=== PATIENT | male | born 1980 | race Caucasian/White ===

== ENCOUNTER 2020-07-14 19:23 | Emergency (ER) | payer SELFPAY ==
[2020-07-14 19:55] VITALS: BP 147/81; PULSE 95; RESP 18; TEMP 36.9; O2SAT 95
--- NOTE | 2020-07-14 20:17 | ED.SKABFB ---
HPI - Skin/Abscess/Foreign Bdy General Chief complaint: Skin/Abscess/Foreign Body Stated complaint: poison rachell breakout Time Seen by Provider: 07/14/20 20:09 Source: patient Mode of arrival: ambulatory Limitations: no limitations History of Present Illness HPI narrative: This is a 39 year old male that presents to the ER for rash present x 3 days. Reports history of reactions to poison rachell. Reports he was doing yard work on Tuesday before it started. The rash is very itchy. He has been using over the counter creams, with little relief. Denies fever. Related Data Allergies Allergy/AdvReac Type Severity Reaction Status Date / Time No Known Allergies Allergy Unknown Unverified 10/15/13 13:25 Review of Systems Review of Systems: Narrative: CONSTITUTIONAL: Denies fever SKIN: Reports rash and itching. All systems reviewed & are unremarkable except as noted in HPI and below PMFSH Past Medical History Medical History (Updated 07/14/20 @ 20:25 by Meera Rendon PA-C) No active medical problems Social History Social History (Updated 07/14/20 @ 20:20 by Meera Rendon PA-C) Smoking status: Current every day smoker Exam Narrative: Exam Narrative: GENERAL: Well-appearing, well-nourished, and in no acute distress. HEAD: Normocephalic, atraumatic. EYES: EOMI. EXTREMITIES: Normal range of motion. No edema. SKIN: Warm, dry. Red, papular rash to the abdomen, legs, and back. Papular rash also present on the arms with areas of blistering NEURO: No focal deficits. Alert and oriented x3. PSYCH: Normal mood and affect Course Vital Signs Vital signs: Vital Signs Temperature 98.4 F 07/14/20 19:55 Pulse Rate 95 07/14/20 19:55 Respiratory Rate 18 07/14/20 19:55 Blood Pressure 147/81 H 07/14/20 19:55 Pulse Oximetry 95 07/14/20 19:55 Temperature 98.4 F 07/14/20 19:55 Pulse Rate 95 07/14/20 19:55 Respiratory Rate 18 07/14/20 19:55 Blood Pressure 147/81 H 07/14/20 19:55 Pulse Oximetry 95 07/14/20 19:55 MDM - Skin/Abscess/Foreign Bdy MDM Narrative Medical decision making narrative: Patient presents the emergency department for contact dermatitis due to poison rachell. Will be started on steroid taper and was instructed on antihistamines. He is to follow-up with primary care doctor. He was given warnings to return to the ER Critical Care Time Critical Care Time Critical Care Time: No Discharge Plan Discharge Clinical Impression: Contact dermatitis due to poison rachell Patient Disposition: Home, Self-Care Condition: Stable Instructions: Poison Rachell (ED) Additional Instructions: Return to the emergency department if you experience fever, redness and swelling of your wounds, abnormal drainage from your wounds, or any other symptoms that are concerning to you Take a Pepcid and Claritin daily. Take prednisone taper as prescribed. You were given your first dose today, start this tomorrow. Benadryl as needed for severe itching Follow-up with primary care doctor Prescriptions: New prednisone 10 mg tablet 10 mg PO DAILY Qty: 45 RF: 0 Follow-up/Referrals: Diego Jo Jr., MD [Physician] - 1 Week UNKNOWN,DOCTOR [Primary Care Provider] -
[2020-07-14] MEDS: predniSONE 20 MG TABLET 60 MG PO (21:04)
== END 2020-07-14 21:05 | disposition home or self-care (01) ==
PROVIDERS: Emergency Provider Emergency Medicine
DX: L23.7 Allergic contact dermatitis due to plants, except food (principal); F17.200 Nicotine dependence, unspecified, uncomplicated
CPT/HCPCS: 99283; J7512

== ENCOUNTER 2020-12-31 10:46 | Emergency (ER) | payer SELFPAY ==
--- NOTE | ~2020-12-31 | XR_ITS ---
EXAMINATION: XR hand RT min 3V DATE: 12/31/2020 11:35 INDICATION: Right hand edema and erythema. Open sore at the right third knuckle. TECHNIQUE: 3 views of right hand were obtained. COMPARISON: None. FINDINGS: Bone alignment is normal. No fracture. There is mild osteoarthritis of second metacarpophal angeal joint. There is soft tissue swelling dorsal to the metacarpophalangeal joints. IMPRESSION: 1. Mild osteoarthritis of second metacarpophalangeal joint. Reviewed, dictated and finalized at location A.
[2020-12-31 10:58] VITALS: BP 136/84; PULSE 98; RESP 16; TEMP 37; O2SAT 100
[2020-12-31 12:06] LABS: Basophils Absolute Auto 0.1 K/mm3 (0.0-0.1); Basophils Percent Auto 0.8 % (0.2-1.2); Eosinophils Absolute Auto 0.2 K/mm3 (0-0.3); Eosinophils Percent Auto 2.5 % (0-4.4); Hematocrit 44.6 % (42.0-52.0); Hemoglobin 14.8 g/dL (14.0-18.0); Immature Granulocyte Absolute 0.01 K/mm3 (0.00-0.031); Immature Granulocyte Percent A 0.1 % (0-0.5); Lymphocytes Percent Auto 23.7 % (18.3-44.2); Mean Corpuscular HGB Conc 33.2 g/dl (32-36); Mean Corpuscular Volume 93.5 fl (80-100); Mean Platelet Volume 9.4 fl (7.4-10.4); Neutrophils Absolute Auto 5.1 K/mm3 (1.3-6.7); Neutrophils Percent Auto 60.9 % (45.5-73.1); Platelet Count Result 295 k/mm3 (150-375); Red Blood Count 4.77 M/mm3 (4.6-6.20); Red Cell Distribution Width 14.3 % (11.5-14.5); White Blood Count 8.4 K/mm3 (4.5-10.0)
--- NOTE | 2020-12-31 12:13 | ED.WOUNDLAC ---
HPI - Wound/Laceration General Chief Complaint: Wound/Laceration <Meera Rendon PA-C - Last Filed: 12/31/20 12:53> Stated Complaint: right hand lac 3 weeks ago <Meera Rendon PA-C - Last Filed: 12/31/20 12:53> Time Seen by Provider: 12/31/20 11:14 <Meera Rnedon PA-C - Last Filed: 12/31/20 12:53> Source: patient <Meera Rendon PA-C - Last Filed: 12/31/20 12:53> Mode of arrival: ambulatory <Meera Rendon PA-C - Last Filed: 12/31/20 12:53> Limitations: no limitations <Meera Rendon PA-C - Last Filed: 12/31/20 12:53> History of Present Illness HPI narrative: This is a 40-year-old male that presents to the emergency department for right hand redness and swelling noted since yesterday. Reports he sustained a laceration to the hand a couple of weeks ago. He did not seek medical care for this. Reports since yesterday he has noted the wound has become red and swollen. Does report some serous drainage from the area. Denies fevers. <Meera Rendon PA-C - Last Filed: 12/31/20 12:53> Related Data Allergies/Adverse Reactions: Allergies Allergy/AdvReac Type Severity Reaction Status Date / Time No Known Allergies Allergy Unknown Verified 12/31/20 11:03 <Meera Rendon PA-C - Last Filed: 12/31/20 12:53> Review of Systems Review of Systems: CONSTITUTIONAL: Denies fever SKIN: Denies redness and swelling <Meera Rendon PA-C - Last Filed: 12/31/20 12:53> All systems reviewed & are unremarkable except as noted in HPI and below <Meera Rendon PA-C - Last Filed: 12/31/20 12:53> [facility] Past Medical History Medical History: Medical History (Updated 12/31/20 @ 12:52 by Meera Rendon PA-C) No active medical problems <Meera Rendon PA-C - Last Filed: 12/31/20 12:53> Social History Social History: Social History (Updated 07/14/20 @ 20:20 by Meera Rendon PA-C) Smoking status: Current every day smoker <Meera Rendon PA-C - Last Filed: 12/31/20 12:53> Exam Narrative: GENERAL: Well-appearing, well-nourished, and in no acute distress. HEAD: Normocephalic, atraumatic. EYES: EOMI. EXTREMITIES: Normal range of motion. 2 cm linear laceration into subcutaneous tissue over the dorsal surface of the right hand third MCP joint. Mild to moderate edema and erythema surrounding. No obvious fluctuance to suggest abscess SKIN: Warm, dry, no rash. NEURO: No focal deficits. Alert and oriented x3. PSYCH: Normal mood and affect <Meera Rendon PA-C - Last Filed: 12/31/20 12:53> Course Vital Signs Vital signs: Vital Signs Temperature 98.6 F 12/31/20 10:58 Pulse Rate 98 12/31/20 10:58 Respiratory Rate 16 12/31/20 10:58 Blood Pressure 136/84 12/31/20 10:58 Pulse Oximetry 100 12/31/20 10:58 Temperature 98.6 F 12/31/20 10:58 Pulse Rate 90 12/31/20 13:47 Respiratory Rate 16 12/31/20 13:47 Blood Pressure 122/84 12/31/20 13:47 Pulse Oximetry 97 12/31/20 13:47 <Meera Rendon PA-C - Last Filed: 12/31/20 12:53> MDM - Wound/Laceration MDM Narrative Medical decision making narrative: Patient presents to the emergency department for redness and swelling of the right hand. Recently had sustained a laceration to the hand and did not seek medical attention. Reports yesterday he noted that the laceration started to become red and swollen. He is afebrile and nontoxic-appearing. No obvious fluctuance to suggest abscess. CBC metabolic panel without concerning findings. Inflammatory markers are not elevated. Right hand x-ray shows mild osteoarthritis. Patient was updated on case findings. Given first dose of antibiotics IV in the ED and will be started on oral antibiotics for cellulitis. He is stable and felt appropriate for further outpatient evaluation. He was given warnings to return to the ER <Meera Rendon PA-C - Last Filed: 12/31/20 12:53> Lab Data Attestation: I reviewed the pat
[2020-12-31 12:20] LABS: Anion Gap 6 mmol/L (8-16); Blood Urea Nitrogen 13 mg/dL (9-20); CRP < 0.5 mg/dL (<1.0); Calcium 8.9 mg/dL (8.4-10.2); Carbon Dioxide 29 mmol/L (22-30); Chloride 103 mmol/L (98-107); Estimated CRCL calculation 88 ml/min; Estimated Glomerular Filt Rate > 60; Glucose 92 mg/dL (65-110); Potassium 4.1 mmol/L (3.4-5.0); Sodium 138 mmol/L (137-145)
[2020-12-31 12:33] LABS: Erythrocyte Sedimentation Rate 7 mm/hr (0-20)
[2020-12-31] MEDS: TETANUS,DIPHTHERIA,AC PERTUSSIS ADULT (0.5 ML) BOOSTRIX IM (13:18)
[2020-12-31 13:47] VITALS: BP 122/84; PULSE 90; RESP 16; O2SAT 97
== END 2020-12-31 13:48 | disposition home or self-care (01) ==
PROVIDERS: Physician Assistant; Emergency Provider General Practice
DX: L03.113 Cellulitis of right upper limb (principal); Z23 Encounter for immunization
CPT/HCPCS: 36415; 73130; 80048; 85025; 85652; 86140; 90471; 90715; 96365; 99283; J0690

== ENCOUNTER 2021-06-22 03:36 | Emergency (ER) | payer SELFPAY ==
--- NOTE | ~2021-06-22 | XR_ITS ---
EXAMINATION: XR finger 2nd RT min 2V DATE: 06/22/2021 04:21 INDICATION: Laceration and trauma to the right second finger TECHNIQUE: Dorsal palmar, lateral and 2 oblique views of the right second digit were obtained COMPARISON: None FINDINGS: Bone alignment is normal. No fracture. Joint spaces are relatively preserved. Dorsal carpal bossing w ith sesamoid bone the third carpometacarpal joint. Bone islands at the distal radius. Soft tissue swe lling with small focus of subcutaneous gas at the dorsal aspect of the second proximal interphalangea l joint consistent with given history of laceration. No radiopaque foreign bodies. IMPRESSION: 1. No acute osseous abnormality or radiopaque foreign bodies. Reviewed, dictated and finalized at location A.
[2021-06-22 03:41] VITALS: BP 160/100; PULSE 95; RESP 18; O2SAT 98
[2021-06-22 03:42] VITALS: BP 160/100; PULSE 92; RESP 16; TEMP 37.1; O2SAT 100
--- NOTE | 2021-06-22 04:07 | ED.GENADULT ---
HPI - General Adult General Chief complaint: Wound/Laceration Stated complaint: lac rt finger Time Seen by Provider: 06/22/21 03:50 History of Present Illness HPI narrative: Patient is a 40-year-old gentleman who presents the emergency department with chief complaint of finger laceration. The patient reports that he had a 2 x 4 landed on his right index finger patient reports there is a laceration on the right index finger PIP joint reports that he had a difficult time controlling the bleeding and this happened around 8 PM. The patient states that it is painful but reports he is able to move the finger without difficulty reports some slight decrease sensation on the lateral aspect of the finger but states that he still is able to feel things. The patient reports that he is up-to-date on his tetanus status Related Data Allergies Allergy/AdvReac Type Severity Reaction Status Date / Time No Known Allergies Allergy Unknown Verified 06/22/21 03:45 Review of Systems Review of Systems: A 10 system review of systems was completed on the patient and is negative except for what is stated in the HPI. Nursing and ancillary documentation was reviewed. PMFSH Past Medical History Medical History No active medical problems Social History Social History Smoking status: Current every day smoker Exam Narrative: GENERAL: Well-appearing, well-nourished, and in no acute distress. HEAD: Normocephalic, atraumatic. EYES: PERRLA and EOMI. ENT: Nares clear, no rhinorrhea or epistaxis. Mucous membranes moist. NECK: Supple. CHEST: Clear to auscultation. No respiratory distress. HEART: Regular rate and rhythm. No murmur heard. Normal peripheral pulses. ABDOMEN: Soft, nontender, nondistended, normal active bowel sounds. EXTREMITIES: Normal range of motion. No edema. There is a 2 cm laceration on the PIP joint of the right index finger SKIN: Warm, dry, no rash. NEURO: No focal deficits. Alert and oriented x3. PSYCH: Normal mood and affect. Course Vital Signs Vital signs: Vital Signs Pulse Rate 95 06/22/21 03:41 Respiratory Rate 18 06/22/21 03:41 Blood Pressure 160/100 H 06/22/21 03:41 Pulse Oximetry 98 06/22/21 03:41 Temperature 37.1 C 06/22/21 03:42 Pulse Rate 92 06/22/21 03:42 Respiratory Rate 16 06/22/21 03:42 Blood Pressure 160/100 H 06/22/21 03:42 Pulse Oximetry 100 06/22/21 03:42 Procedures Laceration Laceration 1: Date: 06/22/21 Time: 05:22 Site: hand Side (If applicable): right Size (cm): 2 Description: linear Depth: simple, single layer Local Anesthetic: lidocaine 1% Amount of anesthesia used (mL): 4 Pre-repair: wound explored and irrigated extensively ====== Skin Level ====== Skin layer closed with: nylon Size (cm): 4-0 Number of sutures: 5 Technique: simple, interrupted ====== Subcutaneous Layer ====== ====== Muscle Layer ====== ====== Tendon Layer ====== Medical Decision Making Vital Signs Vital Signs: Vital Signs Pulse Rate 95 06/22/21 03:41 Respiratory Rate 18 06/22/21 03:41 Blood Pressure 160/100 H 06/22/21 03:41 Pulse Oximetry 98 06/22/21 03:41 Temperature 37.1 C 06/22/21 03:42 Pulse Rate 92 06/22/21 03:42 Respiratory Rate 16 06/22/21 03:42 Blood Pressure 160/100 H 06/22/21 03:42 Pulse Oximetry 100 06/22/21 03:42 Imaging Data My impression: Finger x-ray shows no evidence of fracture Discharge Plan Discharge Clinical Impression: Laceration Laceration of right index finger Qualifiers: Encounter type: initial encounter Damage to nail status: without damage Foreign body presence: without foreign body Qualified Code(s): S61.210A - Laceration without foreign body of right index finger without damage t
== END 2021-06-22 05:30 | disposition home or self-care (01) ==
PROVIDERS: Emergency Provider Emergency Medicine
DX: S61.210A Laceration without foreign body of right index finger without damage to nail, initial encounter (principal); F17.200 Nicotine dependence, unspecified, uncomplicated; W20.8XXA Other cause of strike by thrown, projected or falling object, initial encounter
CPT/HCPCS: 12001; 73140; 99283

== ENCOUNTER 2021-08-10 08:02 | Emergency (ER) | payer SELFPAY ==
--- NOTE | ~2021-08-10 | XR_ITS ---
EXAMINATION: XR wrist LT min 3V DATE: 08/10/2021 08:51 INDICATION: Left wrist pain post fall TECHNIQUE: Posteroanterior, ulnar deviation, oblique, and lateral views of the left wrist were obtain ed. COMPARISON: none FINDINGS: Alignment is normal. No fracture. Joint spaces are normal. Mild soft tissue swelling at the dorsal/ra dial aspect of the wrist. IMPRESSION: 1. No osseous abnormality. Reviewed, dictated and finalized at location A. IMPRESSION: 1. No osseous abnormality.
[2021-08-10 08:13] VITALS: BP 153/89; PULSE 106; RESP 18; TEMP 36.8; O2SAT 100
--- NOTE | 2021-08-10 09:34 | ED.UPPEXIN ---
HPI - Extremity Injury (Upper) General Chief Complaint: Extremity Injury, Upper Stated Complaint: Left Wrist Injury Time Seen by Provider: 08/10/21 08:52 Source: patient Mode of arrival: ambulatory Limitations: no limitations History of Present Illness HPI narrative: 41 y/o male presents to the ER today for left wrist pain and stiffness. He fell out of his bed on Tuesday night and says it has been hurting since then. He does not have any bruising or swelling but he says that it is getting stiffer having less flexion in his wrist due to pain. He also has a resolving poison rachell rash to his forearms that he is requesting to get something for. Related Data Allergies Allergy/AdvReac Type Severity Reaction Status Date / Time No Known Allergies Allergy Unknown Verified 08/10/21 08:20 Review of Systems Constitutional: Constitutional: Denies chills, Denies fatigue and Denies fever(s) Eyes: Eyes: Reports no additional eye complaints ENT: Denies sore throat Cardiovascular: Cardiovascular: Denies chest pain Respiratory: Respiratory: Denies cough and Denies dyspnea Gastrointestinal: Gastrointestinal: Denies diarrhea, Denies nausea and Denies vomiting Musculoskeletal: Musculoskeletal: Denies back pain, Reports arthralgias and Denies joint swelling Integumentary/Breasts: Skin/Breast: Reports rash Neurologic: Denies focal weakness and Denies numbness Psychiatric: Psychiatric: Denies anxiety and Denies depression Endocrine: Endocrine: Reports no additional endocrine complaints Hematologic/Lymphatic: Hematologic/Lymphatic: Reports no additional hematologic/lymphatic complaints Allergic/Immunologic: Allergic/Immunologic: Reports no additional allergic/immunologic complaints [facility] Past Medical History Medical History No active medical problems Social History Social History Smoking status: Current every day smoker Exam Const: General: no acute distress and alert Orientation/consciousness: patient oriented x3 HENMT: Head: normal to inspection Eyes: Conjunctivae: conjunctivae normal Neck: Neck: normal visual inspection Chest: Chest palpation & inspection: normal inspection of the chest Resp: Effort & Inspection: normal respiratory effort Auscultation: clear to auscultation bilaterally Cardio: Rate: regular rate Rhythm: regular rhythm Skin: Other: dry rash to bilat forearms with some papular lesions, no weeping or vesicluar lesions noted Neuro: General: patient oriented x3, moves all extremities and no focal motor deficits Extrem: Other: Lef wrist tender to palmar side over distal ulna and radias, no swelling, no erythema, no bruising or deformity, limited flexion and extension Psych: Mental Status: mental status grossly normal Course Vital Signs Vital signs: Vital Signs Temperature 36.8 C 08/10/21 08:13 Pulse Rate 106 H 08/10/21 08:13 Respiratory Rate 18 08/10/21 08:13 Blood Pressure 153/89 H 08/10/21 08:13 Pulse Oximetry 100 08/10/21 08:13 Temperature 36.8 C 08/10/21 08:13 Pulse Rate 106 H 08/10/21 08:13 Respiratory Rate 18 08/10/21 08:13 Blood Pressure 153/89 H 08/10/21 08:13 Pulse Oximetry 100 08/10/21 08:13 MDM - Extremity Injury (Upper) Differential Diagnosis Differential diagnosis: Likely sprain and strain of wrist and fracture of wrist Imaging Data Radiologist's impression: xray wrist no fracture Discharge Plan Discharge Clinical Impression: Contact dermatitis and eczema due to plant Left wrist sprain Qualifiers: Encounter type: initial encounter Qualified Code(s): S63.502A - Unspecified sprain of left wrist, initial encounter Patient Disposition: Home, Self-Care Condition: Stable Instructions: Antibiotic Form, Poison Rachell (ED), Wrist Sprain (ED) Prescriptions: New triamcinolone acetonide 0.1 % cream 1 applic topic
[2021-08-10 10:14] VITALS: BP 122/77; PULSE 88; RESP 16; O2SAT 100
== END 2021-08-10 10:15 | disposition home or self-care (01) ==
PROVIDERS: Emergency Provider Nurse Practitioner Family
DX: S63.502A Unspecified sprain of left wrist, initial encounter (principal); L25.5 Unspecified contact dermatitis due to plants, except food; F17.200 Nicotine dependence, unspecified, uncomplicated; W06.XXXA Fall from bed, initial encounter
CPT/HCPCS: 73110; 99283